=== PATIENT | male | born 1995 | race Caucasian/White ===

== ENCOUNTER 2017-02-03 14:07 | Emergency (ER) | payer OTHER ==
[2017-02-03 14:17] VITALS: TEMP 98.8
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
[2017-02-03 17:13] VITALS: BP 119/63; PULSE 52; RESP 16; O2SAT 95
== END 2017-02-03 17:13 | disposition home or self-care (01) ==
PROC: 0HQ1XZZ Repair Face Skin, External Approach (ICD-10-PCS; principal; 2017-02-03)
DX: S01.81XA Laceration without foreign body of other part of head, initial encounter (principal); J45.909 Unspecified asthma, uncomplicated; V17.0XXA Pedal cycle driver injured in collision with fixed or stationary object in nontraffic accident, initial encounter; Y92.89 Other specified places as the place of occurrence of the external cause; Y99.8 Other external cause status; Y93.55 Activity, bike riding

== ENCOUNTER 2017-05-25 17:18 | Emergency (ER) | payer OTHER ==
[2017-05-25 17:23] VITALS: O2SAT 97
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
[2017-05-25 18:49] VITALS: BP 118/75; PULSE 81; RESP 16; TEMP 98.8
== END 2017-05-25 18:48 | disposition home or self-care (01) ==
DX: S93.401A Sprain of unspecified ligament of right ankle, initial encounter (principal); Z87.891 Personal history of nicotine dependence; V18.0XXA Pedal cycle driver injured in noncollision transport accident in nontraffic accident, initial encounter; Y99.8 Other external cause status; Y93.55 Activity, bike riding